=== PATIENT | female | born 1965 | race Caucasian/White ===

== ENCOUNTER 2024-03-05 05:00 | Inpatient (IN) | payer OTHER ==
[2024-03-05] MEDS ORDERED: ALBUTEROL SO4 2.5/IPRATROPIUM 0.5 INH SOL 3 ML VIAL.NEB. NEB ONE ×2 (05:08→20:42)
[2024-03-05] MEDS ORDERED: methylPREDNISolone NA SUCC 125 MG/2 ML VIAL IVPUSH ONE (05:30)
[2024-03-05] MEDS ORDERED: DEXAMETHASONE SOD PHOSPHATE 10 MG/1 ML VIAL ONE (05:31)
[2024-03-05] MEDS: DEXAMETHASONE SOD PHOSPHATE 10 MG/1 ML VIAL IM ONE (05:35)
[2024-03-05] MEDS ORDERED: MAGNESIUM SULFATE IN WATER 2 GM/50 ML IVPB IVPB ONE (06:00)
[2024-03-05 06:37] LABS: VENOUS BASE EXCESS -2.1 mmol/L (-2-2); VENOUS O2 SATURATION 30.6 % (70-80); VENOUS PCO2 65.4 mmHg (38-52); VENOUS PH 7.233 (7.310-7.410)
[2024-03-05] MEDS: MAGNESIUM SULFATE IN WATER 2 GM/50 ML IVPB IVPB ONE (06:40)
[2024-03-05 07:02] LABS: POTASSIUM 4.7 mmol/L (3.5-5.1)
[2024-03-05 07:04] LABS: ALBUMIN 4.2 g/dl (3.4-5.0); CALCIUM 10.2 mg/dL (8.5-10.1)
[2024-03-05 07:05] LABS: BLOOD UREA NITROGEN 9.9 mg/dL (7-18); MAGNESIUM 2.1 mg/dL (1.8-2.4)
[2024-03-05 07:08] LABS: CREATININE 0.6 mg/dL (0.55-1.3)
[2024-03-05 07:09] LABS: BILIRUBIN,TOTAL 0.4 mg/dL (0.2-1); TOT PROT 8.4 g/dl (6.4-8.2)
[2024-03-05] MEDS ORDERED: AZITHROMYCIN IVPB 500 MG/250 ML BAG IVPB ONE (07:40)
[2024-03-05 07:48] LABS: BASO % 0.7 % (0-2.0); EOS % 2.9 % (0-4.5); HEMATOCRIT 43.6 % (32.4-45.2); LYMPH % 36.5 % (8-40); MCHC 32.1 g/dl (32.0-36.0); MEAN CELL VOLUME 81.1 fl (80-96); MEAN PLT VOLUME 7.4 fl (7.5-11.1); NEUT % 53.9 % (42.8-82.8); RBC 5.38 M/mm3 (3.60-5.2); RDW 16.4 % (11.6-15.6); WHITE BLOOD COUNT 5.2 K/mm3 (4.0-10.0)
[2024-03-05] MEDS: AZITHROMYCIN IVPB 500 MG in DEXTROSE 5%-WATER - 250 ML IVPB ONE (07:57)
[2024-03-05] MEDS: LACTATED RINGERS SOLUTION 1000 ML INFUS.BAG IV ONE (07:57)
[2024-03-05 08:09] LABS: LACTIC ACID 2.8 mmol/L (0.4-2.0)
[2024-03-05 10:03] LABS: PLATELET COUNT 254 10^3/uL (134-434)
[2024-03-05] MEDS ORDERED: ACETAMINOPHEN INJECTION 100 ML IVPB ONE (13:41)
[2024-03-05] MEDS: ACETAMINOPHEN 1000 MG/100 ML BAG IVPB ONE (13:54)
[2024-03-05] MEDS ORDERED: KETOROLAC TROMETHAMINE 15 MG/ML VIAL ONE (16:43)
[2024-03-05] MEDS ORDERED: GABAPENTIN 300 MG CAPSULE ONE (16:45)
[2024-03-05] MEDS: KETOROLAC TROMETHAMINE 15 MG/ML VIAL IVPUSH ONE (16:52)
[2024-03-05] MEDS: GABAPENTIN 300 MG CAPSULE PO ONE (16:53)
[2024-03-05] MEDS ORDERED: methylPREDNISolone NA SUCC 40 MG/1 ML VIAL ONE (17:22)
[2024-03-05 17:46] LABS: VENOUS BASE EXCESS -1.8 mmol/L (-2-2); VENOUS O2 SATURATION 96.5 % (70-80); VENOUS PCO2 48.7 mmHg (38-52); VENOUS PH 7.323 (7.310-7.410)
[2024-03-05] MEDS: AMINO ACIDS 4.25%/D5W 1,000 ML IV SCH (17:59)
[2024-03-05] MEDS: methylPREDNISolone NA SUCC 40 MG/1 ML VIAL IVPUSH SCH (18:00)
[2024-03-05] MEDS: LIDOCAINE 5% TOPICAL PATCH TP ONE (19:45)
[2024-03-05] MEDS: ALBUTEROL SO4 2.5/IPRATROPIUM 0.5 INH SOL 3 ML VIAL.NEB. NEB SCH (20:40)
[2024-03-05] MEDS ORDERED: HEPARIN NA (PORCINE) 5,000 UNITS/ML 1ML VIAL ONE (20:47)
[2024-03-05] MEDS: HEPARIN NA (PORCINE) 5,000 UNITS/ML 1ML VIAL SQ SCH (21:15)
[2024-03-05 22:56] LABS: EPI CELLS 17 /uL (0-25.1); HYALINE CASTS 0 /uL (0-3.1); URINE APPEARANCE CLOUDY; URINE BACTERIA >9,000 /uL (0-1359); URINE BILIRUBIN NEGATIVE (NEGATIVE); URINE COLOR YELLOW; URINE GLUCOSE (UA) NEGATIVE (NEGATIVE); URINE KETONE 2+ (NEGATIVE); URINE LEUK ESTERASE 2+ (NEGATIVE); URINE NITRITE POSITIVE (NEGATIVE); URINE PROTEIN TRACE (NEGATIVE); URINE RBC 78 /uL (0-23.9); URINE UROBILINOGEN 0.2 mg/dL (0.2-1.0); URINE WBC 12 /uL (0-25.8)
[2024-03-05] MEDS: LIDOCAINE PATCH REMOVAL MC SCH (23:45)
[2024-03-06 00:18] VITALS: BMI 34.0
[2024-03-06] MEDS ORDERED: ACETAMINOPHEN 1000 MG/100 ML BAG IVPB PRN (01:37)
[2024-03-06] MEDS: GABAPENTIN 300 MG CAPSULE PO ONE (01:54)
[2024-03-06] MEDS ORDERED: SENNOSIDES 8.6MG TABLET (FP) PO PRN (02:22)
[2024-03-06] MEDS: ALBUTEROL SO4 2.5/IPRATROPIUM 0.5 INH SOL 3 ML VIAL.NEB. NEB PRN (04:34)
[2024-03-06] MEDS ORDERED: GABAPENTIN 300 MG CAPSULE PO SCH (06:00)
[2024-03-06] MEDS: GABAPENTIN 300 MG CAPSULE PO SCH (06:15)
[2024-03-06 06:54] LABS: BASO % 0.5 % (0-2.0); HEMATOCRIT 37.9 % (32.4-45.2); HEMOGLOBIN 12.1 GM/dL (10.7-15.3); LYMPH % 8.3 % (8-40); MCH 25.6 pg (25.7-33.7); MCHC 31.9 g/dl (32.0-36.0); MEAN CELL VOLUME 80.3 fl (80-96); MEAN PLT VOLUME 6.8 fl (7.5-11.1); MONO % 2.5 % (3.8-10.2); NEUT % 88.7 % (42.8-82.8); PLATELET COUNT 242 10^3/uL (134-434); RBC 4.72 M/mm3 (3.60-5.2); RDW 16.5 % (11.6-15.6); WHITE BLOOD COUNT 4.7 K/mm3 (4.0-10.0)
[2024-03-06 07:14] LABS: CHLORIDE 103 mmol/L (98-107); POTASSIUM 3.9 mmol/L (3.5-5.1); SODIUM 137 mmol/L (136-145)
[2024-03-06] MEDS ORDERED: BUDESONIDE 0.5 MG/2 ML INH SUSP VIAL NEB PRN (07:18)
[2024-03-06 07:20] LABS: ANION GAP 3 mmol/L (4-13); CALCIUM 9.4 mg/dL (8.5-10.1); CO2 31 mmol/L (21-32); GLUCOSE,RANDOM 139 mg/dL (74-106)
[2024-03-06 07:21] LABS: ALBUMIN 3.8 g/dl (3.4-5.0); BLOOD UREA NITROGEN 12.8 mg/dL (7-18); MAGNESIUM 2.3 mg/dL (1.8-2.4)
[2024-03-06 07:23] LABS: SGOT/AST 20 U/L (15-37); SGPT/ALT 17 U/L (13-61)
[2024-03-06 07:24] LABS: CREATININE 0.5 mg/dL (0.55-1.3); PHOSPHOROUS 2.4 mg/dL (2.5-4.9)
[2024-03-06 07:25] LABS: BILIRUBIN,TOTAL 0.4 mg/dL (0.2-1)
[2024-03-06 07:26] LABS: ALK PHOS 82 U/L (45-117)
[2024-03-06] MEDS: ACETAMINOPHEN 325 MG TABLET (FP) PO PRN (08:07)
[2024-03-06] MEDS ORDERED: PATIENT'S OWN MEDICATION (NON-FORMULARY) (Omeprazole [Omeprazole] 20 MG Tablet.Dr) PO SCH (10:00)
[2024-03-06] MEDS: risperiDONE 0.5 MG TABLET PO SCH (10:23)
[2024-03-06] MEDS: PANTOPRAZOLE 20 MG TABLET PO SCH (10:23)
[2024-03-06] MEDS: MIDODRINE HCL 5 MG TABLET PO SCH (10:24)
[2024-03-06] MEDS: BISACODYL 5 MG TABLET.DR (FP) PO SCH (10:24)
[2024-03-06] MEDS: AZITHROMYCIN IVPB 500 MG/250 ML BAG IVPB SCH (10:26)
[2024-03-06] MEDS: LIDOCAINE 5% TOPICAL PATCH TP SCH (13:37)
[2024-03-06] MEDS: BUDESONIDE/FORMETEROL FUMARATE 160/4.5 mcg INHALER IH SCH (13:57)
[2024-03-06] MEDS: DABIGATRAN ETEXILATE MESYLATE 150 MG CAPSULE PO SCH (14:30)
[2024-03-06] MEDS ORDERED: traZODone HCL 50 MG TABLET (FP) ONE (21:49)
[2024-03-06] MEDS: ATORVASTATIN CA 20 MG TABLET (FP) PO SCH (21:51)
[2024-03-06] MEDS: traZODone HCL 100 MG TABLET (FP) PO SCH (21:53)
[2024-03-06] MEDS: LIDOCAINE PATCH REMOVAL MC SCH (22:07)
[2024-03-07] MEDS: guaiFENesin/D-METHORPHAN HB 10 ML UNIT-DOSE CUPS PO PRN (07:51)
[2024-03-07] MEDS: POLYETHYLENE GLYCOL (HEALTHYLAX) 3350 17 GM PACKET PO SCH (10:22)
[2024-03-07] MEDS ORDERED: traZODone HCL 50 MG TABLET (FP) ONE (19:50)
[2024-03-07] MEDS: methylPREDNISolone NA SUCC 40 MG/1 ML VIAL IVPUSH SCH (21:35)
[2024-03-08] MEDS ORDERED: SENNOSIDES 8.6MG TABLET (FP) PO PRN (00:41)
[2024-03-08] MEDS: LIDOCAINE PATCH REMOVAL MC SCH (02:27)
[2024-03-08] MEDS: ALBUTEROL SO4 2.5/IPRATROPIUM 0.5 INH SOL 3 ML VIAL.NEB. NEB PRN (04:38)
[2024-03-08] MEDS: GABAPENTIN 300 MG CAPSULE PO SCH (05:48)
[2024-03-08] MEDS: ALBUTEROL SO4 2.5/IPRATROPIUM 0.5 INH SOL 3 ML VIAL.NEB. NEB SCH (07:41)
[2024-03-08] MEDS: ACETAMINOPHEN 325 MG TABLET (FP) PO PRN (07:51)
[2024-03-08] MEDS: traMADol HCL 50 MG TABLET PO PRN (10:31)
[2024-03-08] MEDS: AZITHROMYCIN IVPB 500 MG/250 ML BAG IVPB SCH (10:40)
[2024-03-08] MEDS: POLYETHYLENE GLYCOL (HEALTHYLAX) 3350 17 GM PACKET PO SCH (10:41)
[2024-03-08] MEDS: LIDOCAINE 5% TOPICAL PATCH TP SCH (10:41)
[2024-03-08] MEDS: predniSONE 20 MG TABLET (UD) PO SCH (10:41)
[2024-03-08] MEDS: risperiDONE 0.5 MG TABLET PO SCH (10:41)
[2024-03-08] MEDS: PANTOPRAZOLE 20 MG TABLET PO SCH (10:41)
[2024-03-08] MEDS: MIDODRINE HCL 5 MG TABLET PO SCH (10:41)
[2024-03-08] MEDS: BISACODYL 5 MG TABLET.DR (FP) PO SCH (10:41)
[2024-03-08] MEDS: BUDESONIDE/FORMETEROL FUMARATE 160/4.5 mcg INHALER IH SCH (10:41)
[2024-03-08] MEDS: DABIGATRAN ETEXILATE MESYLATE 150 MG CAPSULE PO SCH (13:15)
[2024-03-08] MEDS: ATORVASTATIN CA 20 MG TABLET (FP) PO SCH (22:03)
[2024-03-08] MEDS: traZODone HCL 100 MG TABLET (FP) PO SCH (22:03)
[2024-03-08] MEDS: guaiFENesin/D-METHORPHAN HB 10 ML UNIT-DOSE CUPS PO PRN (22:09)
[2024-03-09] MEDS: LIDOCAINE PATCH REMOVAL MC SCH (05:42)
[2024-03-09 06:42] VITALS: RESP 18
[2024-03-09] MEDS: AZITHROMYCIN 250 MG TABLET PO SCH (09:37)
[2024-03-09 09:52] VITALS: BP 112/60; PULSE 92; TEMP 98.3
== END 2024-03-09 11:18 | DRG 140 ==
LOC: JER 05:00 → JERBED 13:20 → J4W 23:50 → J5S 03-07 22:33
PROVIDERS: ADMIT Family Medicine; ATTEND Family Medicine
DX: J44.1 Chronic obstructive pulmonary disease with (acute) exacerbation (principal); G82.20 Paraplegia, unspecified; J20.9 Acute bronchitis, unspecified; M54.50 Low back pain, unspecified; G47.30 Sleep apnea, unspecified; K59.00 Constipation, unspecified; I48.0 Paroxysmal atrial fibrillation; J96.11 Chronic respiratory failure with hypoxia; J98.11 Atelectasis; E78.5 Hyperlipidemia, unspecified; E66.9 Obesity, unspecified; Z68.34 Body mass index [BMI] 34.0-34.9, adult; F32.A Depression, unspecified; R07.89 Other chest pain; G62.9 Polyneuropathy, unspecified; Z99.81 Dependence on supplemental oxygen; Z88.0 Allergy status to penicillin
CPT/HCPCS: 0241U-QW; 36415; 71045-TC-FY; 74177-TC; 80053; 81003; 82803; 82962; 83036; 83605; 83690; 83735; 84100; 84443; 84484; 85025; 86850; 86900; 86901; 87040; 87086; 93005; 93010; 93306-TC; 94640; 94660; 97161-GP; 99285-25; J0131; J1100; J1644; Q9967

== ENCOUNTER 2024-04-20 12:15 | Observation (INO) | payer OTHER ==
[2024-04-20 12:39] VITALS: BMI 36.5
[2024-04-20] MEDS ORDERED: MIDODRINE HCL 5 MG TABLET ONE ×2 (12:49→18:18)
[2024-04-20] MEDS ORDERED: ACETAMINOPHEN INJECTION 100 ML IVPB ONE (12:49)
[2024-04-20] MEDS ORDERED: MEROPENEM 1 GM VIAL (RESTRICTED TO ID) IVPB ONE (12:49)
[2024-04-20] MEDS ORDERED: VANCOMYCIN 1 GRAM (PRE-DOCKED) 1,000 MG/250 ML BAG IVPB ONE (12:50)
[2024-04-20] MEDS: MIDODRINE HCL 5 MG TABLET PO ONE (13:00)
[2024-04-20 13:45] LABS: VENOUS BASE EXCESS 2.1 mmol/L (-2-2); VENOUS O2 SATURATION 69.2 % (70-80); VENOUS PCO2 46.8 mmHg (38-52); VENOUS PH 7.39 (7.310-7.410)
[2024-04-20] MEDS: ACETAMINOPHEN 1000 MG/100 ML BAG IVPB ONE (13:45)
[2024-04-20] MEDS: SODIUM CHLORIDE 1,000 ML IV STA ×3 (13:45→17:15)
[2024-04-20] MEDS: MEROPENEM 1 GM in DEXTROSE 5%-WATER 100 ML IVPB ONE (13:45)
[2024-04-20 13:49] LABS: BASO % 0.5 % (0-2.0); EOS % 0.4 % (0-4.5); HEMATOCRIT 39.6 % (32.4-45.2); HEMOGLOBIN 12.7 GM/dL (10.7-15.3); LYMPH % 11.1 % (8-40); MCH 27.4 pg (25.7-33.7); MCHC 32.1 g/dl (32.0-36.0); MEAN CELL VOLUME 85.2 fl (80-96); MEAN PLT VOLUME 6.9 fl (7.5-11.1); MONO % 3.1 % (3.8-10.2); NEUT % 84.9 % (42.8-82.8); PLATELET COUNT 266 10^3/uL (134-434); RBC 4.65 M/mm3 (3.60-5.2); RDW 18.6 % (11.6-15.6); WHITE BLOOD COUNT 9.9 K/mm3 (4.0-10.0)
[2024-04-20 13:56] LABS: PROTHROMBIN TIME (PATIENT) 11.3 SEC (9.7-13.0)
[2024-04-20 13:59] LABS: ACTIVATED PTT 25.8 SECONDS (25.2-36.5)
[2024-04-20] MEDS: VANCOMYCIN 1,000 MG in DEXTROSE 5%-WATER - 250 ML IVPB ONE (14:08)
[2024-04-20 14:12] LABS: POTASSIUM 4.3 mmol/L (3.5-5.1)
[2024-04-20 14:13] LABS: ALBUMIN 3.7 g/dl (3.4-5.0); CALCIUM 9.6 mg/dL (8.5-10.1)
[2024-04-20 14:16] LABS: CREATININE 0.7 mg/dL (0.55-1.3)
[2024-04-20 14:18] LABS: BILIRUBIN,TOTAL 0.6 mg/dL (0.2-1); TOT PROT 6.4 g/dl (6.4-8.2)
[2024-04-20 14:18] LABS: EPI CELLS >36 /uL (0-25.1); HYALINE CASTS 14 /uL (0-3.1); URINE APPEARANCE TURBID; URINE BACTERIA >9,000 /uL (0-1359); URINE BILIRUBIN NEGATIVE (NEGATIVE); URINE COLOR YELLOW; URINE GLUCOSE (UA) NEGATIVE (NEGATIVE); URINE KETONE TRACE (NEGATIVE); URINE LEUK ESTERASE 3+ (NEGATIVE); URINE NITRITE NEGATIVE (NEGATIVE); URINE PROTEIN 2+ (NEGATIVE); URINE UROBILINOGEN 0.2 mg/dL (0.2-1.0); URINE WBC 1369 /uL (0-25.8)
[2024-04-20 14:20] LABS: LACTIC ACID 2.2 mmol/L (0.4-2.0)
[2024-04-20 14:48] LABS: URINE RBC 215 /uL (0-23.9)
[2024-04-20 14:49] LABS: URINE CRYSTALS TRIPLE PHOSPH MANY /hpf
[2024-04-20 16:44] LABS: LACTIC ACID 2.5 mmol/L (0.4-2.0)
[2024-04-20] MEDS ORDERED: BISACODYL 10 MG SUPP.RECT PR PRN (16:48)
[2024-04-20] MEDS: MIDODRINE HCL 5 MG TABLET PO SCH (18:22)
[2024-04-20] MEDS: GABAPENTIN 300 MG CAPSULE PO ONE (18:22)
[2024-04-20] MEDS: ACETAMINOPHEN 1000 MG/100 ML BAG IVPB PRN (22:09)
[2024-04-20] MEDS: POLYETHYLENE GLYCOL (HEALTHYLAX) 3350 17 GM PACKET PO SCH (22:10)
[2024-04-20] MEDS: GABAPENTIN 300 MG CAPSULE PO SCH (22:10)
[2024-04-20] MEDS: ATORVASTATIN CA 20 MG TABLET (FP) PO SCH (22:10)
[2024-04-20] MEDS: ALBUTEROL SO4 2.5/IPRATROPIUM 0.5 INH SOL 3 ML VIAL.NEB. NEB PRN (22:20)
[2024-04-20] MEDS: DABIGATRAN ETEXILATE MESYLATE 150 MG CAPSULE PO SCH (22:53)
[2024-04-20] MEDS: traZODone HCL 100 MG TABLET (FP) PO SCH (23:00)
[2024-04-21] MEDS: DEXTROSE 5%-0.45% SALINE 1,000 ML IV SCH (06:41)
[2024-04-21] MEDS: NITROFURANTOIN MONOHYD/M-CRYST 100 MG CAPSULE PO SCH (21:38)
[2024-04-21] MEDS: SENNOSIDES 8.6MG TABLET (FP) PO SCH (21:39)
[2024-04-22] MEDS: risperiDONE 0.5 MG TABLET PO SCH (09:19)
[2024-04-23 06:56] VITALS: RESP 18
[2024-04-23] MEDS: BISACODYL 10 MG SUPP.RECT PR PRN (14:13)
[2024-04-24] MEDS: LACTULOSE 20 GM/30 ML UDC (FOR ORAL USE ONLY) PO ONE (15:17)
[2024-04-24] MEDS: ACETAMINOPHEN 325 MG TABLET (FP) PO ONE (20:14)
[2024-04-25 09:45] VITALS: BP 114/64; PULSE 114; TEMP 98.6
[2024-04-25] MEDS: POLYETHYLENE GLYCOL (HEALTHYLAX) 3350 17 GM PACKET PO SCH (09:46)
== END 2024-04-25 11:34 ==
LOC: JER 12:15 → INTOOBSV 15:24 → JERBED 15:24 → UNDOADMOB 15:24 → J5S 18:46 → JERBED 18:46 → J5S 04-21 11:44
PROVIDERS: ADMIT Internal Medicine; ATTEND Internal Medicine
PROC: 3E03329 Introduction of Other Anti-infective into Peripheral Vein, Percutaneous Approach (ICD-10-PCS; principal; 2024-04-21)
PROC: 3E033NZ Introduction of Analgesics, Hypnotics, Sedatives into Peripheral Vein, Percutaneous Approach (ICD-10-PCS; 2024-04-21)
DX: R10.9 Unspecified abdominal pain (principal); N39.0 Urinary tract infection, site not specified; K59.00 Constipation, unspecified; I48.91 Unspecified atrial fibrillation; J44.1 Chronic obstructive pulmonary disease with (acute) exacerbation; M54.50 Low back pain, unspecified; G62.9 Polyneuropathy, unspecified; G82.20 Paraplegia, unspecified; I95.9 Hypotension, unspecified; R00.0 Tachycardia, unspecified; G47.30 Sleep apnea, unspecified; E66.9 Obesity, unspecified; Z68.36 Body mass index [BMI] 36.0-36.9, adult; Z88.0 Allergy status to penicillin; Z88.8 Allergy status to other drugs, medicaments and biological substances; Z99.81 Dependence on supplemental oxygen
CPT/HCPCS: 0241U-QW; 36415; 71046-TC-FY; 74018-TC-FY; 74177-TC; 80053; 81003; 82803; 82962; 83605; 83690; 84484; 85025; 85610; 85730; 86850; 86900; 86901; 87040; 87086; 87186; 87635; 93005; 93010; 94640; 96361; 96365; 96367; 96375; 99285-25; G0378; J0131; Q9967

== ENCOUNTER 2024-04-28 11:58 | Inpatient (IN) | payer OTHER ==
[2024-04-28] MEDS ORDERED: MEROPENEM 1 GM VIAL (RESTRICTED TO ID) IVPB ONE (13:18)
[2024-04-28] MEDS ORDERED: MAGNESIUM CITRATE 300 ML BOTTLE ONE (13:18)
[2024-04-28] MEDS ORDERED: ACETAMINOPHEN INJECTION 100 ML IVPB ONE (13:18)
[2024-04-28 14:29] LABS: BASO % 0.5 % (0-2.0); HEMATOCRIT 38.2 % (32.4-45.2); HEMOGLOBIN 12.6 GM/dL (10.7-15.3); LYMPH % 21.6 % (8-40); MCHC 32.9 g/dl (32.0-36.0); MEAN PLT VOLUME 7.1 fl (7.5-11.1); MONO % 7.7 % (3.8-10.2); NEUT % 69.2 % (42.8-82.8); PLATELET COUNT 292 10^3/uL (134-434); RBC 4.49 M/mm3 (3.60-5.2); RDW 19.7 % (11.6-15.6); WHITE BLOOD COUNT 8.6 K/mm3 (4.0-10.0)
[2024-04-28 14:30] LABS: VENOUS BASE EXCESS 1.2 mmol/L (-2-2); VENOUS O2 SATURATION 69.9 % (70-80); VENOUS PCO2 48.3 mmHg (38-52); VENOUS PH 7.368 (7.310-7.410)
[2024-04-28 14:30] LABS: *STOOL FOR OCCULT BLOOD NEGATIVE (NEGATIVE)
[2024-04-28 14:36] LABS: EPI CELLS >36 /uL (0-25.1); HYALINE CASTS 3 /uL (0-3.1); INR 1.02 (0.83-1.09); PH,URINE 7.5 (5.0-8.0); PROTHROMBIN TIME (PATIENT) 11.5 SEC (9.7-13.0); URINE APPEARANCE CLOUDY; URINE BACTERIA >9,000 /uL (0-1359); URINE BILIRUBIN NEGATIVE (NEGATIVE); URINE COLOR YELLOW; URINE GLUCOSE (UA) NEGATIVE (NEGATIVE); URINE KETONE TRACE (NEGATIVE); URINE LEUK ESTERASE 3+ (NEGATIVE); URINE NITRITE POSITIVE (NEGATIVE); URINE PROTEIN 1+ (NEGATIVE); URINE RBC 12 /uL (0-23.9); URINE WBC 84 /uL (0-25.8)
[2024-04-28 14:38] LABS: ACTIVATED PTT 36.8 SECONDS (25.2-36.5)
[2024-04-28] MEDS: MEROPENEM 1 GM in DEXTROSE 5%-WATER 100 ML IVPB ONE (14:40)
[2024-04-28] MEDS: MAGNESIUM CITRATE 300 ML BOTTLE PO ONE (14:40)
[2024-04-28] MEDS: SODIUM PHOSPHATE/NA BIPHOS 133 ML ENEMA PR ONE (14:40)
[2024-04-28 14:50] LABS: POTASSIUM 5.5 mmol/L (3.5-5.1)
[2024-04-28 14:52] LABS: BLOOD UREA NITROGEN 6.1 mg/dL (7-18); CALCIUM 9.4 mg/dL (8.5-10.1); MAGNESIUM 2.2 mg/dL (1.8-2.4)
[2024-04-28 14:53] LABS: ALBUMIN 3.4 g/dl (3.4-5.0)
[2024-04-28 14:55] LABS: PHOSPHOROUS 3.8 mg/dL (2.5-4.9)
[2024-04-28 14:56] LABS: CREATININE 0.6 mg/dL (0.55-1.3)
[2024-04-28 14:57] LABS: TOT PROT 6.7 g/dl (6.4-8.2); URINE CRYSTALS PRESENT /hpf
[2024-04-28 15:03] LABS: LACTIC ACID 2.9 mmol/L (0.4-2.0)
[2024-04-28] MEDS: ACETAMINOPHEN 1000 MG/100 ML BAG IVPB ONE (15:11)
[2024-04-28] MEDS: SODIUM CHLORIDE 0.9% 500 ML INFUS.BAG IV ONE (15:11)
[2024-04-28] MEDS ORDERED: ALBUTEROL SO4 2.5/IPRATROPIUM 0.5 INH SOL 3 ML VIAL.NEB. NEB ONE (18:13)
[2024-04-28] MEDS ORDERED: MIDODRINE HCL 5 MG TABLET ONE (18:13)
[2024-04-28] MEDS: ALBUTEROL SO4 2.5/IPRATROPIUM 0.5 INH SOL 3 ML VIAL.NEB. NEB SCH (18:23)
[2024-04-28] MEDS: MIDODRINE HCL 5 MG TABLET PO ONE (18:23)
[2024-04-29] MEDS ORDERED: MEROPENEM 1 GM in DEXTROSE 5%-WATER 100 ML IVPB SCH
[2024-04-29] MEDS: MEROPENEM 1 GM in DEXTROSE 5%-WATER 100 ML IVPB SCH (00:56)
[2024-04-29 02:37] VITALS: BMI 38.2
[2024-04-29] MEDS: ALBUTEROL SO4 2.5/IPRATROPIUM 0.5 INH SOL 3 ML VIAL.NEB. NEB PRN (02:56)
[2024-04-29] MEDS: traZODone HCL 100 MG TABLET (FP) PO SCH (03:19)
[2024-04-29] MEDS: GABAPENTIN 300 MG CAPSULE PO SCH (06:39)
[2024-04-29] MEDS ORDERED: METOCLOPRAMIDE HCL INJECTION 10 MG/2 ML VIAL IVPUSH PRN (07:06)
[2024-04-29 08:13] LABS: HEMATOCRIT 35.9 % (32.4-45.2); HEMOGLOBIN 11.7 GM/dL (10.7-15.3); MCH 27.6 pg (25.7-33.7); MCHC 32.6 g/dl (32.0-36.0); MEAN CELL VOLUME 84.8 fl (80-96); MEAN PLT VOLUME 7.1 fl (7.5-11.1); PLATELET COUNT 295 10^3/uL (134-434); RBC 4.23 M/mm3 (3.60-5.2); RDW 19.6 % (11.6-15.6); WHITE BLOOD COUNT 8.3 K/mm3 (4.0-10.0)
[2024-04-29 08:25] LABS: POTASSIUM 4.2 mmol/L (3.5-5.1)
[2024-04-29 08:29] LABS: BLOOD UREA NITROGEN 5.6 mg/dL (7-18); MAGNESIUM 2.3 mg/dL (1.8-2.4)
[2024-04-29 08:33] LABS: CREATININE 0.5 mg/dL (0.55-1.3); PHOSPHOROUS 3.4 mg/dL (2.5-4.9)
[2024-04-29] MEDS: BUDESONIDE/FORMETEROL FUMARATE 160/4.5 mcg INHALER IH SCH (09:42)
[2024-04-29] MEDS: LIDOCAINE 5% TOPICAL PATCH TP SCH (09:43)
[2024-04-29] MEDS: POLYETHYLENE GLYCOL (HEALTHYLAX) 3350 17 GM PACKET PO SCH ×2 (09:44→22:22)
[2024-04-29] MEDS: DABIGATRAN ETEXILATE MESYLATE 150 MG CAPSULE PO SCH (09:44)
[2024-04-29] MEDS: MIDODRINE HCL 5 MG TABLET PO SCH (09:44)
[2024-04-29] MEDS: risperiDONE 0.5 MG TABLET PO SCH (09:44)
[2024-04-29] MEDS: ALBUTEROL SO4 2.5/IPRATROPIUM 0.5 INH SOL 3 ML VIAL.NEB. NEB SCH (15:20)
[2024-04-29 15:46] LABS: LACTIC ACID 3.4 mmol/L (0.4-2.0)
[2024-04-29 18:36] LABS: LACTIC ACID 3.4 mmol/L (0.4-2.0)
[2024-04-29] MEDS: SODIUM CHLORIDE 1,000 ML IV STA (20:03)
[2024-04-29 20:27] LABS: LACTIC ACID 2.1 mmol/L (0.4-2.0)
[2024-04-29] MEDS: SENNOSIDES 8.6MG TABLET (FP) PO SCH (22:00)
[2024-04-29] MEDS: ATORVASTATIN CA 20 MG TABLET (FP) PO SCH (22:00)
[2024-04-29] MEDS: LIDOCAINE PATCH REMOVAL MC SCH (22:12)
[2024-04-30 09:38] LABS: BASO % 0.6 % (0-2.0); EOS % 1.9 % (0-4.5); HEMATOCRIT 35.3 % (32.4-45.2); HEMOGLOBIN 11.3 GM/dL (10.7-15.3); LYMPH % 27.2 % (8-40); MCH 27.7 pg (25.7-33.7); MEAN CELL VOLUME 86.5 fl (80-96); MEAN PLT VOLUME 7.1 fl (7.5-11.1); MONO % 7.4 % (3.8-10.2); NEUT % 62.9 % (42.8-82.8); PLATELET COUNT 285 10^3/uL (134-434); RBC 4.08 M/mm3 (3.60-5.2); RDW 19.8 % (11.6-15.6); WHITE BLOOD COUNT 6.2 K/mm3 (4.0-10.0)
[2024-04-30 09:49] LABS: POTASSIUM 4.2 mmol/L (3.5-5.1)
[2024-04-30 09:51] LABS: CALCIUM 9.1 mg/dL (8.5-10.1)
[2024-04-30 09:52] LABS: ALBUMIN 3.1 g/dl (3.4-5.0); BLOOD UREA NITROGEN 3.6 mg/dL (7-18)
[2024-04-30 09:55] LABS: CREATININE 0.5 mg/dL (0.55-1.3)
[2024-04-30 09:56] LABS: BILIRUBIN,TOTAL 0.5 mg/dL (0.2-1); TOT PROT 5.5 g/dl (6.4-8.2)
[2024-04-30] MEDS: PEG 3350/NA SULF BICARB CL/KCL 4000 ML SOLN.RECON PO ONE (14:28)
[2024-04-30] MEDS: ACETAMINOPHEN 500 MG TABLET (FP) PO ONE (21:19)
[2024-05-01] MEDS: POLYETHYLENE GLYCOL 3350 255 GM BTL PO ONE (12:50)
[2024-05-02] MEDS: BUDESONIDE 0.5 MG/2 ML INH SUSP VIAL NEB PRN (13:53)
[2024-05-03] MEDS: POLYETHYLENE GLYCOL (HEALTHYLAX) 3350 17 GM PACKET PO SCH (10:01)
[2024-05-03 14:54] LABS: EPI CELLS >36 /uL (0-25.1); HYALINE CASTS 3 /uL (0-3.1); URINE APPEARANCE CLEAR; URINE BACTERIA 2109 /uL (0-1359); URINE BILIRUBIN NEGATIVE (NEGATIVE); URINE COLOR YELLOW; URINE GLUCOSE (UA) NEGATIVE (NEGATIVE); URINE KETONE NEGATIVE (NEGATIVE); URINE LEUK ESTERASE 2+ (NEGATIVE); URINE NITRITE NEGATIVE (NEGATIVE); URINE PROTEIN NEGATIVE (NEGATIVE); URINE RBC 47 /uL (0-23.9); URINE UROBILINOGEN 0.2 mg/dL (0.2-1.0); URINE WBC 37 /uL (0-25.8)
[2024-05-03] MEDS: MEROPENEM 1 GM in DEXTROSE 5%-WATER 100 ML IVPB SCH (17:57)
[2024-05-04] MEDS: BUDESONIDE 0.5 MG/2 ML INH SUSP VIAL NEB PRN (02:20)
[2024-05-04] MEDS: MEROPENEM 1 GM in DEXTROSE 5%-WATER 100 ML IVPB SCH (10:11)
[2024-05-04] MEDS: VANCOMYCIN/WATER FOR INJ (PEG) 1,000 MG/200 ML BAG IVPB SCH (18:15)
[2024-05-04] MEDS: POLYETHYLENE GLYCOL (HEALTHYLAX) 3350 17 GM PACKET PO SCH (21:39)
[2024-05-05] MEDS ORDERED: ALBUTEROL SO4 0.083% IH SOL 2.5 MG/3 ML VIAL.NEB. NEB PRN (10:52)
[2024-05-05] MEDS: MAG HYDROX/AL HYDROX/SIMETH 30 ML UNIT-DOSE CUP PO ONE (22:00)
[2024-05-06 09:49] LABS: BASO % 0.6 % (0-2.0); EOS % 2.7 % (0-4.5); HEMATOCRIT 32.6 % (32.4-45.2); HEMOGLOBIN 10.8 GM/dL (10.7-15.3); LYMPH % 23.3 % (8-40); MCH 28.5 pg (25.7-33.7); MEAN CELL VOLUME 86.3 fl (80-96); MEAN PLT VOLUME 6.6 fl (7.5-11.1); MONO % 6.4 % (3.8-10.2); PLATELET COUNT 324 10^3/uL (134-434); RBC 3.78 M/mm3 (3.60-5.2); RDW 20.1 % (11.6-15.6); WHITE BLOOD COUNT 5.5 K/mm3 (4.0-10.0)
[2024-05-06 10:11] LABS: POTASSIUM 4.4 mmol/L (3.5-5.1)
[2024-05-06 10:13] LABS: CALCIUM 8.9 mg/dL (8.5-10.1)
[2024-05-06 10:14] LABS: BLOOD UREA NITROGEN 5.5 mg/dL (7-18)
[2024-05-06 10:17] LABS: CREATININE 0.7 mg/dL (0.55-1.3)
[2024-05-06 10:19] LABS: BILIRUBIN,TOTAL 0.5 mg/dL (0.2-1); TOT PROT 5.7 g/dl (6.4-8.2)
[2024-05-06] MEDS: PEG 3350/NA SULF BICARB CL/KCL 4000 ML SOLN.RECON PO ONE (11:14)
[2024-05-07] MEDS: BISACODYL 5 MG TABLET.DR (FP) PO ONE (15:25)
[2024-05-07] MEDS: PEG 3350/NA SULF BICARB CL/KCL 4000 ML SOLN.RECON PO ONE (16:57)
[2024-05-08 09:51] LABS: BASO % 0.7 % (0-2.0); EOS % 1.8 % (0-4.5); HEMATOCRIT 31.4 % (32.4-45.2); HEMOGLOBIN 10.4 GM/dL (10.7-15.3); LYMPH % 25.8 % (8-40); MCH 28.6 pg (25.7-33.7); MEAN CELL VOLUME 86.8 fl (80-96); MONO % 6.8 % (3.8-10.2); NEUT % 64.9 % (42.8-82.8); RBC 3.62 M/mm3 (3.60-5.2); RDW 19.9 % (11.6-15.6); WHITE BLOOD COUNT 5.9 K/mm3 (4.0-10.0)
[2024-05-08 09:54] LABS: INR 1.04 (0.83-1.09); PROTHROMBIN TIME (PATIENT) 11.9 SEC (9.7-13.0)
[2024-05-08 10:05] LABS: POTASSIUM 3.8 mmol/L (3.5-5.1)
[2024-05-08 10:07] LABS: BLOOD UREA NITROGEN 4.5 mg/dL (7-18)
[2024-05-08 10:10] LABS: CREATININE 0.6 mg/dL (0.55-1.3)
[2024-05-08 10:12] LABS: BILIRUBIN,TOTAL 0.6 mg/dL (0.2-1); TOT PROT 5.4 g/dl (6.4-8.2)
[2024-05-08] MEDS: POLYETHYLENE GLYCOL 3350 255 GM BTL PO ONE (13:58)
[2024-05-08] MEDS: BISACODYL 5 MG TABLET.DR (FP) PO ONE (21:24)
[2024-05-09 09:32] LABS: BASO % 0.7 % (0-2.0); EOS % 1.8 % (0-4.5); HEMATOCRIT 30.8 % (32.4-45.2); HEMOGLOBIN 10.4 GM/dL (10.7-15.3); LYMPH % 24.7 % (8-40); MCHC 33.7 g/dl (32.0-36.0); MEAN PLT VOLUME 6.4 fl (7.5-11.1); MONO % 6.2 % (3.8-10.2); NEUT % 66.6 % (42.8-82.8); PLATELET COUNT 334 10^3/uL (134-434); RBC 3.59 M/mm3 (3.60-5.2); RDW 19.4 % (11.6-15.6); WHITE BLOOD COUNT 5.6 K/mm3 (4.0-10.0)
[2024-05-09 09:44] LABS: INR 1.05 (0.83-1.09); PROTHROMBIN TIME (PATIENT) 11.9 SEC (9.7-13.0)
[2024-05-09] MEDS: LINEZOLID 600 MG TABLET (RESTRICTED TO ID) PO SCH (09:50)
[2024-05-09 09:58] LABS: POTASSIUM 3.7 mmol/L (3.5-5.1)
[2024-05-09] MEDS ORDERED: LINEZOLID 600 MG TABLET (RESTRICTED TO ID) PO SCH (10:00)
[2024-05-09 10:07] LABS: BLOOD UREA NITROGEN 4.4 mg/dL (7-18)
[2024-05-09 10:09] LABS: CALCIUM 8.5 mg/dL (8.5-10.1)
[2024-05-09 10:10] LABS: MAGNESIUM 1.8 mg/dL (1.8-2.4)
[2024-05-09 10:11] LABS: CREATININE 0.4 mg/dL (0.55-1.3); PHOSPHOROUS 3.6 mg/dL (2.5-4.9)
[2024-05-09] MEDS ORDERED: ETOMIDATE 20 MG/10 ML VIAL IVPUSH ONE (10:27)
[2024-05-09] MEDS ORDERED: MIDAZOLAM HCL 2 MG/2 ML SINGLE DOSE VIAL ONE (10:55)
[2024-05-09 12:51] VITALS: PULSE 64; RESP 14
[2024-05-09 16:57] VITALS: BP 98/58; TEMP 98.9
== END 2024-05-09 16:45 | DRG 254 ==
LOC: JER 11:58 → JERBED 19:13 → J6S 23:24 → OBSVTOIN 05-05 10:43
PROVIDERS: ADMIT Internal Medicine; ATTEND Family Medicine
PROC: 0DBL8ZX Excision of Transverse Colon, Via Natural or Artificial Opening Endoscopic, Diagnostic (ICD-10-PCS; 2024-05-09)
PROC: 0DBP8ZX Excision of Rectum, Via Natural or Artificial Opening Endoscopic, Diagnostic (ICD-10-PCS; 2024-05-09)
PROC: 0DBG8ZX Excision of Left Large Intestine, Via Natural or Artificial Opening Endoscopic, Diagnostic (ICD-10-PCS; 2024-05-09)
PROC: 0W3P8ZZ Control Bleeding in Gastrointestinal Tract, Via Natural or Artificial Opening Endoscopic (ICD-10-PCS; 2024-05-09)
PROC: 0DBK8ZX Excision of Ascending Colon, Via Natural or Artificial Opening Endoscopic, Diagnostic (ICD-10-PCS; principal; 2024-05-09 11:00)
DX: K59.09 Other constipation (principal); J96.11 Chronic respiratory failure with hypoxia; F20.0 Paranoid schizophrenia; J43.9 Emphysema, unspecified; G82.20 Paraplegia, unspecified; I48.0 Paroxysmal atrial fibrillation; Z99.81 Dependence on supplemental oxygen; Z88.0 Allergy status to penicillin; N39.0 Urinary tract infection, site not specified
CPT/HCPCS: 0241U-QW; 36415; 71045-TC-FY; 74176-TC; 74177-TC; 80048; 80053; 81003; 82272; 82803; 82962; 83605; 83690; 83735; 84100; 84484; 85025; 85027; 85610; 85730; 86850; 86900; 86901; 87077; 87086; 87186; 88305-TC; 93005; 93010; 94640; 99285-25; G0378; G0480; J0131; Q9967

== ENCOUNTER 2024-09-29 14:22 | Observation (INO) | payer OTHER ==
[2024-09-29 15:49] LABS: EPI CELLS 34 /uL (0-25.1); HYALINE CASTS 2 /uL (0-3.1); PH,URINE 6.5 (5.0-8.0); URINE APPEARANCE CLOUDY; URINE BACTERIA >9,000 /uL (0-1359); URINE BILIRUBIN NEGATIVE (NEGATIVE); URINE COLOR YELLOW; URINE GLUCOSE (UA) NEGATIVE (NEGATIVE); URINE KETONE NEGATIVE (NEGATIVE); URINE LEUK ESTERASE 3+ (NEGATIVE); URINE NITRITE POSITIVE (NEGATIVE); URINE PROTEIN NEGATIVE (NEGATIVE); URINE RBC 23 /uL (0-23.9); URINE UROBILINOGEN 0.2 mg/dL (0.2-1.0); URINE WBC 227 /uL (0-25.8)
[2024-09-29 16:26] LABS: BASO % 0.4 % (0-2.0); EOS % 1.7 % (0-4.5); HEMATOCRIT 34.9 % (32.4-45.2); HEMOGLOBIN 11.4 GM/dL (10.7-15.3); LYMPH % 22.6 % (8-40); MCH 27.5 pg (25.7-33.7); MCHC 32.5 g/dl (32.0-36.0); MEAN CELL VOLUME 84.4 fl (80-96); MEAN PLT VOLUME 6.8 fl (7.5-11.1); MONO % 5.3 % (3.8-10.2); PLATELET COUNT 275 10^3/uL (134-434); RBC 4.13 M/mm3 (3.60-5.2); RDW 16.5 % (11.6-15.6); WHITE BLOOD COUNT 6.7 K/mm3 (4.0-10.0)
[2024-09-29] MEDS: LACTATED RINGERS SOLUTION 1000 ML INFUS.BAG IV ONE (16:34)
[2024-09-29 16:57] LABS: POTASSIUM 4.2 mmol/L (3.5-5.1)
[2024-09-29] MEDS ORDERED: MEROPENEM 1 GM VIAL (RESTRICTED TO ID) IVPB ONE (16:57)
[2024-09-29] MEDS ORDERED: DEXTROSE 5%-WATER 100 ML IVPB ONE (16:58)
[2024-09-29] MEDS ORDERED: MIDODRINE HCL 5 MG TABLET ONE (16:58)
[2024-09-29 16:59] LABS: CALCIUM 9.4 mg/dL (8.5-10.1)
[2024-09-29 17:00] LABS: ALBUMIN 3.5 g/dl (3.4-5.0); BLOOD UREA NITROGEN 7.4 mg/dL (7-18); MAGNESIUM 2.2 mg/dL (1.8-2.4)
[2024-09-29 17:03] LABS: CREATININE 0.8 mg/dL (0.55-1.3)
[2024-09-29 17:04] LABS: BILIRUBIN,TOTAL 0.4 mg/dL (0.2-1)
[2024-09-29 17:05] LABS: TOT PROT 6.4 g/dl (6.4-8.2)
[2024-09-29] MEDS: MEROPENEM 1 GM in DEXTROSE 5%-WATER 100 ML IVPB ONE (17:09)
[2024-09-29] MEDS: MIDODRINE HCL 5 MG TABLET PO ONE (17:18)
[2024-09-29 17:24] LABS: LACTIC ACID 2.8 mmol/L (0.4-2.0)
[2024-09-29] MEDS ORDERED: LINEZOLID 600 MG PREMIX BAG 600 MG/300 ML BAG IVPB ONE (18:20)
[2024-09-29] MEDS: LINEZOLID 600 MG PREMIX BAG 600 MG in PREMIX 300 IVPB ONE (18:33)
[2024-09-29] MEDS ORDERED: AZITHROMYCIN IVPB 500 MG/250 ML BAG IVPB ONE (20:31)
[2024-09-29] MEDS: AZITHROMYCIN IVPB 500 MG in DEXTROSE 5%-WATER - 250 ML IVPB ONE (20:41)
[2024-09-29] MEDS: GABAPENTIN 300 MG CAPSULE PO ONE (23:28)
[2024-09-29] MEDS: traZODone HCL 50 MG TABLET (FP) PO ONE (23:28)
[2024-09-29] MEDS: SENNOSIDES 8.6MG TABLET (FP) PO SCH (23:28)
[2024-09-29] MEDS: DABIGATRAN ETEXILATE MESYLATE 150 MG CAPSULE PO ONE (23:38)
[2024-09-30] MEDS: ALBUTEROL SO4 2.5/IPRATROPIUM 0.5 INH SOL 3 ML VIAL.NEB. NEB ONE (00:03)
[2024-09-30 02:31] VITALS: BMI 39.6
[2024-09-30] MEDS: LINEZOLID 600 MG PREMIX BAG 600 MG/300 ML BAG IVPB SCH (06:40)
[2024-09-30] MEDS: MAGNESIUM CITRATE 300 ML BOTTLE PO ONE ×2 (07:05→13:44)
[2024-09-30] MEDS: BUDESONIDE 0.5 MG/2 ML INH SUSP VIAL NEB SCH (07:38)
[2024-09-30 08:24] LABS: BASO % 0.6 % (0-2.0); EOS % 2.9 % (0-4.5); HEMATOCRIT 32.9 % (32.4-45.2); HEMOGLOBIN 10.9 GM/dL (10.7-15.3); MCH 27.9 pg (25.7-33.7); MCHC 33.2 g/dl (32.0-36.0); MEAN CELL VOLUME 84.1 fl (80-96); MEAN PLT VOLUME 7.3 fl (7.5-11.1); MONO % 5.4 % (3.8-10.2); NEUT % 58.1 % (42.8-82.8); PLATELET COUNT 257 10^3/uL (134-434); RBC 3.91 M/mm3 (3.60-5.2); RDW 16.5 % (11.6-15.6); WHITE BLOOD COUNT 5.1 K/mm3 (4.0-10.0)
[2024-09-30 08:55] LABS: BLOOD UREA NITROGEN 4.7 mg/dL (7-18); CALCIUM 9.2 mg/dL (8.5-10.1)
[2024-09-30 08:56] LABS: MAGNESIUM 2.2 mg/dL (1.8-2.4)
[2024-09-30 08:59] LABS: CREATININE 0.6 mg/dL (0.55-1.3); PHOSPHOROUS 4.3 mg/dL (2.5-4.9)
[2024-09-30] MEDS: PANTOPRAZOLE 20 MG TABLET PO SCH (09:45)
[2024-09-30] MEDS: BISACODYL 5 MG TABLET.DR (FP) PO SCH (09:46)
[2024-09-30] MEDS: DABIGATRAN ETEXILATE MESYLATE 150 MG CAPSULE PO SCH (09:46)
[2024-09-30] MEDS: POLYETHYLENE GLYCOL (HEALTHYLAX) 3350 17 GM PACKET PO SCH ×2 (09:46→21:44)
[2024-09-30] MEDS: MIDODRINE HCL 5 MG TABLET PO SCH (09:48)
[2024-09-30] MEDS: MEROPENEM-0.9% SODIUM CHLORIDE 1 GM/50 ML BAG IVPB SCH (09:49)
[2024-09-30] MEDS ORDERED: ALBUTEROL SO4 2.5/IPRATROPIUM 0.5 INH SOL 3 ML VIAL.NEB. NEB SCH (10:00)
[2024-09-30] MEDS ORDERED: risperiDONE 0.5 MG TABLET PO SCH (10:00)
[2024-09-30] MEDS ORDERED: BISACODYL 5 MG TABLET.DR (FP) PO SCH (10:00)
[2024-09-30] MEDS: ALBUTEROL SO4 2.5/IPRATROPIUM 0.5 INH SOL 3 ML VIAL.NEB. NEB PRN ×2 (11:40→15:23)
[2024-09-30] MEDS: MINERAL OIL ENEMA 133 ML ENEMA RC ONE (12:00)
[2024-09-30] MEDS: SODIUM PHOSPHATE/NA BIPHOS 133 ML ENEMA RC ONE (13:44)
[2024-09-30] MEDS: LACTULOSE 20 GM/30 ML UDC (FOR ORAL USE ONLY) PO ONE (14:03)
[2024-09-30] MEDS: MEROPENEM 1 GM in DEXTROSE 5%-WATER 100 ML IVPB SCH (14:03)
[2024-09-30] MEDS: GABAPENTIN 300 MG CAPSULE PO ONE (18:24)
[2024-09-30] MEDS: GABAPENTIN 300 MG CAPSULE PO SCH (21:42)
[2024-09-30] MEDS: ATORVASTATIN CA 20 MG TABLET (FP) PO SCH ×2 (21:42→21:46)
[2024-09-30] MEDS: traZODone HCL 100 MG TABLET (FP) PO SCH (21:42)
[2024-10-01] MEDS: BISACODYL 5 MG TABLET.DR (FP) PO SCH (09:21)
[2024-10-01] MEDS: risperiDONE 0.5 MG TABLET PO SCH (09:21)
[2024-10-01] MEDS: MEROPENEM 1 GM in DEXTROSE 5%-WATER 100 ML IVPB SCH (12:19)
[2024-10-01] MEDS: ALBUTEROL SO4 2.5/IPRATROPIUM 0.5 INH SOL 3 ML VIAL.NEB. NEB SCH (12:20)
[2024-10-01] MEDS: LINEZOLID 600 MG PREMIX BAG 600 MG/300 ML BAG IVPB SCH (12:21)
[2024-10-01] MEDS: NITROFURANTOIN MACROCRYSTAL 50 MG CAPSULE (FP) PO SCH (13:29)
[2024-10-03] MEDS: ALBUTEROL SO4 2.5/IPRATROPIUM 0.5 INH SOL 3 ML VIAL.NEB. NEB SCH (11:12)
[2024-10-03 13:30] LABS: BASO % 0.3 % (0-2.0); EOS % 1.3 % (0-4.5); HEMATOCRIT 36.4 % (32.4-45.2); HEMOGLOBIN 11.7 GM/dL (10.7-15.3); MCH 27.5 pg (25.7-33.7); MCHC 32.2 g/dl (32.0-36.0); MEAN CELL VOLUME 85.4 fl (80-96); NEUT % 83.4 % (42.8-82.8); PLATELET COUNT 242 10^3/uL (134-434); RBC 4.26 M/mm3 (3.60-5.2); RDW 16.2 % (11.6-15.6); WHITE BLOOD COUNT 5.5 K/mm3 (4.0-10.0)
[2024-10-03 13:53] LABS: POTASSIUM 4.2 mmol/L (3.5-5.1)
[2024-10-03 13:57] LABS: ALBUMIN 3.5 g/dl (3.4-5.0); CALCIUM 9.4 mg/dL (8.5-10.1)
[2024-10-03 13:59] LABS: BLOOD UREA NITROGEN 8.6 mg/dL (7-18)
[2024-10-03 14:00] LABS: CREATININE 0.7 mg/dL (0.55-1.3)
[2024-10-03 14:01] LABS: BILIRUBIN,TOTAL 0.4 mg/dL (0.2-1)
[2024-10-03 14:03] LABS: TOT PROT 6.2 g/dl (6.4-8.2)
[2024-10-03] MEDS: CYCLOBENZAPRINE HCL 10 MG TABLET (FP) PO PRN (14:35)
[2024-10-03] MEDS: FAMOTIDINE 20 MG/50 ML IVPB 20 MG/50 ML MG IVPB ONE (14:35)
[2024-10-03] MEDS: ACETAMINOPHEN 1000 MG/100 ML BAG IVPB ONE (23:24)
[2024-10-04] MEDS: ACETAMINOPHEN 500 MG TABLET (FP) PO ONE (00:57)
[2024-10-04 01:21] LABS: EPI CELLS >36 /uL (0-25.1); HYALINE CASTS 7 /uL (0-3.1); PH,URINE 7.5 (5.0-8.0); URINE APPEARANCE CLEAR; URINE BACTERIA 8 /uL (0-1359); URINE BILIRUBIN NEGATIVE (NEGATIVE); URINE COLOR DK YELLOW; URINE GLUCOSE (UA) NEGATIVE (NEGATIVE); URINE KETONE TRACE (NEGATIVE); URINE LEUK ESTERASE TRACE (NEGATIVE); URINE NITRITE NEGATIVE (NEGATIVE); URINE PROTEIN NEGATIVE (NEGATIVE); URINE UROBILINOGEN 0.2 mg/dL (0.2-1.0); URINE WBC 20 /uL (0-25.8)
[2024-10-04 09:01] LABS: POTASSIUM 3.8 mmol/L (3.5-5.1)
[2024-10-04 09:11] LABS: CALCIUM 9.2 mg/dL (8.5-10.1)
[2024-10-04 09:12] LABS: BLOOD UREA NITROGEN 7.4 mg/dL (7-18)
[2024-10-04 09:15] LABS: CREATININE 0.7 mg/dL (0.55-1.3)
[2024-10-04 09:37] LABS: BASO % 0.6 % (0-2.0); EOS % 0.7 % (0-4.5); HEMATOCRIT 35.3 % (32.4-45.2); HEMOGLOBIN 11.4 GM/dL (10.7-15.3); LYMPH % 23.7 % (8-40); MCH 27.5 pg (25.7-33.7); MCHC 32.4 g/dl (32.0-36.0); MEAN CELL VOLUME 84.9 fl (80-96); MEAN PLT VOLUME 7.6 fl (7.5-11.1); MONO % 11.6 % (3.8-10.2); NEUT % 63.4 % (42.8-82.8); PLATELET COUNT 221 10^3/uL (134-434); RBC 4.16 M/mm3 (3.60-5.2); WHITE BLOOD COUNT 2.9 K/mm3 (4.0-10.0)
[2024-10-04] MEDS: ACETAMINOPHEN 325 MG TABLET (FP) PO PRN (11:16)
[2024-10-04] MEDS: ONDANSETRON 4 MG/2 ML VIAL IVPUSH PRN (14:29)
[2024-10-04] MEDS: MEROPENEM-0.9% SODIUM CHLORIDE 1 GM/50 ML BAG IVPB ONE (17:45)
[2024-10-04] MEDS: LINEZOLID 600 MG PREMIX BAG 600 MG/300 ML BAG IVPB ONE (17:45)
[2024-10-05] MEDS: POLYETHYLENE GLYCOL 3350 255 GM BTL PO ONE ×2 (13:53→14:31)
[2024-10-05] MEDS: SODIUM PHOSPHATE/NA BIPHOS 133 ML ENEMA RC ONE (13:57)
[2024-10-05] MEDS: SODIUM PHOSPHATE/NA BIPHOS 133 ML ENEMA PR ONE (14:31)
[2024-10-05] MEDS: ACETAMINOPHEN 500 MG TABLET (FP) PO ONE (20:19)
[2024-10-05] MEDS: ACETAMINOPHEN 1000 MG/100 ML BAG IVPB ONE (20:50)
[2024-10-06] MEDS: ALBUTEROL SO4 2.5/IPRATROPIUM 0.5 INH SOL 3 ML VIAL.NEB. NEB ONE (05:46)
[2024-10-06 08:09] LABS: BASO % 0.1 % (0-2.0); EOS % 0.6 % (0-4.5); HEMATOCRIT 32.9 % (32.4-45.2); HEMOGLOBIN 10.6 GM/dL (10.7-15.3); LYMPH % 15.2 % (8-40); MCH 27.6 pg (25.7-33.7); MCHC 32.2 g/dl (32.0-36.0); MEAN CELL VOLUME 85.9 fl (80-96); MEAN PLT VOLUME 7.5 fl (7.5-11.1); MONO % 7.4 % (3.8-10.2); NEUT % 76.7 % (42.8-82.8); PLATELET COUNT 182 10^3/uL (134-434); RBC 3.83 M/mm3 (3.60-5.2); RDW 16.2 % (11.6-15.6)
[2024-10-06 08:38] LABS: ALBUMIN 3.3 g/dl (3.4-5.0); CALCIUM 8.7 mg/dL (8.5-10.1)
[2024-10-06 08:40] LABS: BLOOD UREA NITROGEN 6.7 mg/dL (7-18)
[2024-10-06 08:43] LABS: CREATININE 0.6 mg/dL (0.55-1.3)
[2024-10-06 08:44] LABS: BILIRUBIN,TOTAL 0.4 mg/dL (0.2-1); TOT PROT 6.2 g/dl (6.4-8.2)
[2024-10-06] MEDS: RIFAXIMIN 550 MG TABLET PO SCH (13:47)
[2024-10-06] MEDS: LACTULOSE 20 GM/30 ML UDC (FOR ORAL USE ONLY) PO SCH (13:48)
[2024-10-08] MEDS: ALBUTEROL SO4 2.5/IPRATROPIUM 0.5 INH SOL 3 ML VIAL.NEB. NEB PRN (16:11)
[2024-10-15 07:38] LABS: HEMATOCRIT 32.4 % (32.4-45.2); HEMOGLOBIN 10.5 GM/dL (10.7-15.3); MCH 27.6 pg (25.7-33.7); MCHC 32.4 g/dl (32.0-36.0); MEAN CELL VOLUME 85.3 fl (80-96); MEAN PLT VOLUME 6.8 fl (7.5-11.1); PLATELET COUNT 321 10^3/uL (134-434); RDW 15.5 % (11.6-15.6); WHITE BLOOD COUNT 5.6 K/mm3 (4.0-10.0)
[2024-10-15 07:40] LABS: POTASSIUM 4.1 mmol/L (3.5-5.1)
[2024-10-15 07:43] LABS: ALBUMIN 3.3 g/dl (3.4-5.0); BLOOD UREA NITROGEN 9.4 mg/dL (7-18)
[2024-10-15 07:46] LABS: CREATININE 0.7 mg/dL (0.55-1.3)
[2024-10-15 07:47] LABS: BILIRUBIN,TOTAL 0.6 mg/dL (0.2-1)
[2024-10-16 15:05] VITALS: BP 90/52; PULSE 66; RESP 20; TEMP 98.4
== END 2024-10-16 17:55 ==
LOC: JER 14:22 → JERBED 15:11 → J7W 21:42
PROVIDERS: ADMIT Student in an Organized Health Care Education/Training Program; ATTEND Family Medicine
PROC: 3E03329 Introduction of Other Anti-infective into Peripheral Vein, Percutaneous Approach (ICD-10-PCS; principal; 2024-09-29)
PROC: 3E033NZ Introduction of Analgesics, Hypnotics, Sedatives into Peripheral Vein, Percutaneous Approach (ICD-10-PCS; 2024-09-29)
PROC: 3E0337Z Introduction of Electrolytic and Water Balance Substance into Peripheral Vein, Percutaneous Approach (ICD-10-PCS; 2024-09-29)
PROC: 3E0F7SF Introduction of Other Gas into Respiratory Tract, Via Natural or Artificial Opening (ICD-10-PCS; 2024-09-29)
DX: K59.01 Slow transit constipation (principal); N39.0 Urinary tract infection, site not specified; J96.11 Chronic respiratory failure with hypoxia; A41.9 Sepsis, unspecified organism; J98.11 Atelectasis; A77 Spotted fever [tick-borne rickettsioses]; I48.0 Paroxysmal atrial fibrillation; J44.9 Chronic obstructive pulmonary disease, unspecified; G82.20 Paraplegia, unspecified; I95.9 Hypotension, unspecified; F20.0 Paranoid schizophrenia; R10.13 Epigastric pain; R39.198 Other difficulties with micturition; K44.9 Diaphragmatic hernia without obstruction or gangrene; M54.50 Low back pain, unspecified; E66.9 Obesity, unspecified; Z68.39 Body mass index [BMI] 39.0-39.9, adult; R10.9 Unspecified abdominal pain; R00.0 Tachycardia, unspecified; R50.9 Fever, unspecified; Z79.01 Long term (current) use of anticoagulants; Z88.0 Allergy status to penicillin; Z87.440 Personal history of urinary (tract) infections; Z88.8 Allergy status to other drugs, medicaments and biological substances; Z86.718 Personal history of other venous thrombosis and embolism; G47.33 Obstructive sleep apnea (adult) (pediatric); Z99.81 Dependence on supplemental oxygen; Z99.89 Dependence on other enabling machines and devices; V89.2XXD Person injured in unspecified motor-vehicle accident, traffic, subsequent encounter
CPT/HCPCS: 36415; 71045-TC-FY; 74021-TC-FY; 74177-TC; 74178-TC; 80048; 80053; 81003; 82962; 83605; 83690; 83735; 84100; 84484; 85025; 85027; 87040; 87086; 87635; 93005; 93010; 94010; 94640; 96365; 96367; 96375; 97161-GP; 99285-25; G0378; J0131; Q9967

== ENCOUNTER 2024-11-05 01:54 | Observation (INO) | payer OTHER ==
[2024-11-05] MEDS: ALBUTEROL SO4 2.5/IPRATROPIUM 0.5 INH SOL 3 ML VIAL.NEB. NEB SCH (02:33)
[2024-11-05 03:34] LABS: BASO % 0.8 % (0-2.0); EOS % 3.2 % (0-4.5); HEMATOCRIT 36.3 % (32.4-45.2); HEMOGLOBIN 11.9 GM/dL (10.7-15.3); LYMPH % 44.7 % (8-40); MCH 27.8 pg (25.7-33.7); MCHC 32.7 g/dl (32.0-36.0); MEAN PLT VOLUME 6.9 fl (7.5-11.1); MONO % 6.1 % (3.8-10.2); NEUT % 45.2 % (42.8-82.8); PLATELET COUNT 241 10^3/uL (134-434); RBC 4.27 M/mm3 (3.60-5.2); WHITE BLOOD COUNT 6.6 K/mm3 (4.0-10.0)
[2024-11-05 03:39] LABS: POTASSIUM 5.9 mmol/L (3.5-5.1)
[2024-11-05 03:41] LABS: CALCIUM 9.2 mg/dL (8.5-10.1)
[2024-11-05 03:42] LABS: ALBUMIN 3.4 g/dl (3.4-5.0); BLOOD UREA NITROGEN 6.3 mg/dL (7-18)
[2024-11-05 03:45] LABS: CREATININE 0.9 mg/dL (0.55-1.3)
[2024-11-05 03:47] LABS: BILIRUBIN,TOTAL 0.6 mg/dL (0.2-1); TOT PROT 6.7 g/dl (6.4-8.2)
[2024-11-05 04:04] LABS: ALBUMIN 3.5 g/dl (3.4-5.0); BLOOD UREA NITROGEN 5.3 mg/dL (7-18); CALCIUM 9.3 mg/dL (8.5-10.1)
[2024-11-05 04:08] LABS: CREATININE 0.8 mg/dL (0.55-1.3)
[2024-11-05 04:09] LABS: BILIRUBIN,TOTAL 0.4 mg/dL (0.2-1); TOT PROT 6.5 g/dl (6.4-8.2)
[2024-11-05] MEDS: MINERAL OIL ENEMA 133 ML ENEMA RC ONE (04:46)
[2024-11-05] MEDS: POLYETHYLENE GLYCOL (HEALTHYLAX) 3350 17 GM PACKET PO SCH (13:05)
[2024-11-05] MEDS: GABAPENTIN 300 MG CAPSULE PO SCH ×2 (13:05→13:40)
[2024-11-05] MEDS: RIFAXIMIN 550 MG TABLET PO SCH (14:39)
[2024-11-05] MEDS ORDERED: ALBUTEROL SO4 2.5/IPRATROPIUM 0.5 INH SOL 3 ML VIAL.NEB. NEB ONE ×2 (15:35→20:30)
[2024-11-05] MEDS: ALBUTEROL SO4 2.5/IPRATROPIUM 0.5 INH SOL 3 ML VIAL.NEB. NEB PRN (15:37)
[2024-11-05] MEDS ORDERED: LACTULOSE 20 GM/30 ML UDC (FOR ORAL USE ONLY) ONE (17:10)
[2024-11-05] MEDS: LACTULOSE 20 GM/30 ML UDC (FOR ORAL USE ONLY) PO PRN (17:12)
[2024-11-05] MEDS ORDERED: ATORVASTATIN CA 20 MG TABLET (FP) ONE (22:22)
[2024-11-05] MEDS ORDERED: GABAPENTIN 300 MG CAPSULE ONE (22:22)
[2024-11-05] MEDS ORDERED: POLYETHYLENE GLYCOL (HEALTHYLAX) 3350 17 GM PACKET ONE (22:22)
[2024-11-05] MEDS ORDERED: SENNOSIDES 8.6MG TABLET (FP) PO ONE (22:23)
[2024-11-05] MEDS ORDERED: traZODone HCL 100 MG TABLET (FP) ONE (22:23)
[2024-11-05] MEDS ORDERED: DOCUSATE SODIUM 100 MG CAPSULE (FP) PO ONE (22:23)
[2024-11-05] MEDS: BUDESONIDE/FORMETEROL FUMARATE 160/4.5 mcg INHALER IH SCH (22:25)
[2024-11-05] MEDS: DOCUSATE SODIUM 100 MG CAPSULE (FP) PO SCH (22:25)
[2024-11-05] MEDS: ATORVASTATIN CA 20 MG TABLET (FP) PO SCH (22:25)
[2024-11-05] MEDS: traZODone HCL 100 MG TABLET (FP) PO SCH (22:25)
[2024-11-05] MEDS: SENNOSIDES 8.6MG TABLET (FP) PO SCH (22:25)
[2024-11-05] MEDS: DABIGATRAN ETEXILATE MESYLATE 150 MG CAPSULE PO SCH (22:33)
[2024-11-06] MEDS ORDERED: ALBUTEROL SO4 2.5/IPRATROPIUM 0.5 INH SOL 3 ML VIAL.NEB. NEB ONE (06:21)
[2024-11-06] MEDS ORDERED: GABAPENTIN 300 MG CAPSULE ONE (06:22)
[2024-11-06 08:47] LABS: BASO % 0.4 % (0-2.0); EOS % 3.4 % (0-4.5); HEMATOCRIT 34.9 % (32.4-45.2); HEMOGLOBIN 11.3 GM/dL (10.7-15.3); LYMPH % 31.7 % (8-40); MCH 27.7 pg (25.7-33.7); MCHC 32.5 g/dl (32.0-36.0); MEAN CELL VOLUME 85.3 fl (80-96); MEAN PLT VOLUME 7.2 fl (7.5-11.1); NEUT % 58.5 % (42.8-82.8); PLATELET COUNT 252 10^3/uL (134-434); RBC 4.09 M/mm3 (3.60-5.2); RDW 14.7 % (11.6-15.6); WHITE BLOOD COUNT 6.1 K/mm3 (4.0-10.0)
[2024-11-06 09:17] LABS: POTASSIUM 4.1 mmol/L (3.5-5.1)
[2024-11-06 09:25] LABS: BLOOD UREA NITROGEN 5.6 mg/dL (7-18)
[2024-11-06 09:26] LABS: ALBUMIN 3.3 g/dl (3.4-5.0); CALCIUM 9.4 mg/dL (8.5-10.1)
[2024-11-06 09:27] LABS: BILIRUBIN,TOTAL 0.6 mg/dL (0.2-1); TOT PROT 6.2 g/dl (6.4-8.2)
[2024-11-06 09:29] LABS: CREATININE 0.6 mg/dL (0.55-1.3)
[2024-11-07] MEDS: MIDODRINE HCL 5 MG TABLET PO SCH (10:56)
[2024-11-07] MEDS: risperiDONE 0.5 MG TABLET PO SCH (10:56)
[2024-11-07 15:58] VITALS: BMI 40.7
[2024-11-07] MEDS: FAMOTIDINE 20 MG TABLET PO SCH (22:34)
[2024-11-07] MEDS: MAGNESIUM HYDROX 2400MG/30ML ORAL SUSPENSION 30 ML CUP PO PRN (22:35)
[2024-11-09] MEDS: ACETAMINOPHEN 1000 MG/100 ML BAG IVPB ONE (05:44)
[2024-11-09] MEDS: ACETAMINOPHEN 325 MG TABLET (FP) PO ONE (05:56)
[2024-11-09] MEDS: BISACODYL 10 MG SUPP.RECT PR PRN (18:05)
[2024-11-10] MEDS: ENOXAPARIN NA (PORCINE) 40 MG/0.4 ML DISP.SYRIN SQ SCH (18:51)
[2024-11-10] MEDS: ALBUTEROL SO4 2.5/IPRATROPIUM 0.5 INH SOL 3 ML VIAL.NEB. NEB PRN (19:59)
[2024-11-11 13:03] LABS: HEMOGLOBIN 11.3 GM/dL (10.7-15.3); MCH 27.5 pg (25.7-33.7); MCHC 32.4 g/dl (32.0-36.0); MEAN CELL VOLUME 84.9 fl (80-96); MEAN PLT VOLUME 7.2 fl (7.5-11.1); PLATELET COUNT 269 10^3/uL (134-434); RBC 4.12 M/mm3 (3.60-5.2); WHITE BLOOD COUNT 6.6 K/mm3 (4.0-10.0)
[2024-11-11 13:30] LABS: POTASSIUM 4.1 mmol/L (3.5-5.1)
[2024-11-11 13:32] LABS: CALCIUM 9.2 mg/dL (8.5-10.1)
[2024-11-11 13:33] LABS: ALBUMIN 3.2 g/dl (3.4-5.0); BLOOD UREA NITROGEN 8.2 mg/dL (7-18)
[2024-11-11 13:36] LABS: CREATININE 0.7 mg/dL (0.55-1.3)
[2024-11-11 13:37] LABS: BILIRUBIN,TOTAL 0.5 mg/dL (0.2-1)
[2024-11-11 13:53] LABS: ALLENS TEST POSITIVE; ARTERIAL BLD GAS O2 SATURATION 96.5 % (95-98); ARTERIAL BLOOD GAS BASE EXCESS 3.2 mmol/L (-2-2); ARTERIAL BLOOD GAS PO2 79.4 mmHg (80-100); ARTERIAL BLOOD GAS pH 7.478 (7.350-7.450)
[2024-11-11] MEDS: PANTOPRAZOLE 40 MG TABLET PO SCH (15:26)
[2024-11-11] MEDS: DEXAMETHASONE SOD PHOSPHATE 10 MG/1 ML VIAL IVPUSH SCH (18:08)
[2024-11-11] MEDS: REMDESIVIR 200 MG in SODIUM CHLORIDE 250 ML IVPB ONE (18:10)
[2024-11-11] MEDS: ALBUTEROL SO4 0.083% IH SOL 2.5 MG/3 ML VIAL.NEB. NEB PRN (20:33)
[2024-11-11] MEDS: MAG HYDROX/AL HYDROX/SIMETH 30 ML UNIT-DOSE CUP PO PRN (21:54)
[2024-11-12 06:22] LABS: URINE APPEARANCE CLOUDY; URINE BILIRUBIN NEGATIVE (NEGATIVE); URINE COLOR YELLOW; URINE GLUCOSE (UA) NEGATIVE (NEGATIVE); URINE KETONE NEGATIVE (NEGATIVE); URINE LEUK ESTERASE 3+ (NEGATIVE); URINE NITRITE POSITIVE (NEGATIVE); URINE PROTEIN NEGATIVE (NEGATIVE); URINE UROBILINOGEN 0.2 mg/dL (0.2-1.0)
[2024-11-12 08:47] LABS: EPI CELLS 27 /uL (0-25.1); HYALINE CASTS 1 /uL (0-3.1); URINE RBC 18 /uL (0-23.9); URINE WBC 412 /uL (0-25.8)
[2024-11-12 08:48] LABS: URINE BACTERIA 15067 /uL (0-1359)
[2024-11-12] MEDS ORDERED: REMDESIVIR 100 MG in SODIUM CHLORIDE 250 ML IVPB SCH (15:00)
[2024-11-12] MEDS: REMDESIVIR 100 MG in SODIUM CHLORIDE 250 ML IVPB SCH (17:59)
[2024-11-13] MEDS: NITROFURANTOIN MONOHYD/M-CRYST 100 MG CAPSULE PO SCH (11:57)
[2024-11-13] MEDS: CYCLOBENZAPRINE HCL 10 MG TABLET (FP) PO PRN (15:45)
[2024-11-14] MEDS: ACETAMINOPHEN 325 MG TABLET (FP) PO PRN (21:00)
[2024-11-15] MEDS: oxyCODONE HCL 5 MG TABLET PO ONE (05:25)
[2024-11-15] MEDS: AZTREONAM 1 GM in DEXTROSE 5%-WATER - 50 ML IVPB SCH (07:49)
[2024-11-15] MEDS: LIDOCAINE HCL 4% TOPICAL SOLN (50 ML/BOTTLE) TP ONE (07:50)
[2024-11-15] MEDS: AZTREONAM 1 GM VIAL (RESTRICTED TO ID) IVPB SCH (07:50)
[2024-11-15] MEDS: ALBUTEROL SO4 HFA INHALER IH PRN (11:01)
[2024-11-16] MEDS: AZTREONAM 1 GM in DEXTROSE 5%-WATER - 50 ML IVPB SCH (10:29)
[2024-11-17] MEDS: ALBUTEROL SO4 0.083% IH SOL 2.5 MG/3 ML VIAL.NEB. NEB PRN (12:36)
[2024-11-17 15:41] VITALS: BP 100/65; PULSE 90; RESP 18; TEMP 97.8
== END 2024-11-17 18:16 ==
LOC: JER 01:54 → INTOOBSV 09:54 → JERBED 09:54 → UNDOADMOB 09:54 → J8W 11-06 15:53 → JERBED 11-06 15:53 → J8W 11-06 16:25 → JERBED 11-07 11:43 → J8W 11-07 11:43
PROVIDERS: ADMIT Family Medicine; ATTEND Family Medicine
PROC: 3E0F7SF Introduction of Other Gas into Respiratory Tract, Via Natural or Artificial Opening (ICD-10-PCS; principal; 2024-11-07)
DX: U07.1 COVID-19 (principal); K59.01 Slow transit constipation; R10.9 Unspecified abdominal pain; K56.7 Ileus, unspecified; I10 Essential (primary) hypertension; J44.9 Chronic obstructive pulmonary disease, unspecified; I48.91 Unspecified atrial fibrillation; R03.1 Nonspecific low blood-pressure reading; G82.20 Paraplegia, unspecified; J96.11 Chronic respiratory failure with hypoxia; G62.9 Polyneuropathy, unspecified; G47.30 Sleep apnea, unspecified; R09.02 Hypoxemia; E66.9 Obesity, unspecified; Z68.41 Body mass index [BMI] 40.0-44.9, adult; F20.9 Schizophrenia, unspecified; J15.9 Unspecified bacterial pneumonia; A41.9 Sepsis, unspecified organism; F10.90 Alcohol use, unspecified, uncomplicated; K70.9 Alcoholic liver disease, unspecified; E78.5 Hyperlipidemia, unspecified; Z88.0 Allergy status to penicillin; Z87.440 Personal history of urinary (tract) infections
CPT/HCPCS: 36415; 36600; 71045-TC-FY; 74018-TC-FY; 80053; 81003; 82803; 85025; 85027; 87086; 87186; 87635; 93005; 93010; 94640; 97162-GP; 99285-25; G0378; J0131